=== PATIENT | female | born 2005 | race Caucasian/White ===

== ENCOUNTER 2025-02-03 12:31 | Emergency (ER) | payer OTHER ==
[~2025-02-03] VITALS: Ht 165.1 cm; Wt 119.7 kg
[~2025-02-03 12:31] MED LIST: ALBUTEROL INH; AUGMENTIN ES-6100 ML PO; B VITAMINS PO; CIPRODEX 0.3%-7.5 ML OT; IRON PO; ZINC PO
[2025-02-03] MEDS ORDERED: CEPHALEXIN500 M1 PO (13:17)
== END 2025-02-03 13:35 | disposition home or self-care (01) ==
LOC: ED 12:31
DX: S62.631B Displaced fracture of distal phalanx of left index finger, initial encounter for open fracture (principal); Z79.899 Other long term (current) drug therapy; Z96.22 Myringotomy tube(s) status; W23.0XXA Caught, crushed, jammed, or pinched between moving objects, initial encounter; Y93.89 Activity, other specified; Y92.89 Other specified places as the place of occurrence of the external cause; Y99.8 Other external cause status